=== PATIENT | male | born 1975 | race Caucasian/White ===

== ENCOUNTER 2017-03-20 06:45 | Emergency (ER) | payer SELFPAY ==
[~2017-03-20 06:45] MED LIST: ?BP MED; AMOXIL500 M1 PO; CIPRO PO; CORTISPORIN-TC10 ML AD; FLAGYL PO; HCTZ; LISINOPRIL-HCTZ1 T14 PO; LOSARTAN-HCTZ1 EACH PO; NAPROSYN500 MG PO; NORCO 5/325MG PO; ROBAXIN500 MG PO; TYLENOL #3 PO; VOLTAREN75 MG PO
[2017-03-20 07:02] LABS: INFLUENZA A NEG (NEG); INFLUENZA B NEG (NEG)
== END 2017-03-20 07:12 | disposition home or self-care (01) ==
LOC: SED 06:45
PROVIDERS: Emergency Medicine
DX: R51 Headache (principal); R11.2 Nausea with vomiting, unspecified; I10 Essential (primary) hypertension; Z87.442 Personal history of urinary calculi; Z98.890 Other specified postprocedural states
CPT/HCPCS: 87804; 96361; 96374; 96375; 99284; J1200; J2765